=== PATIENT | male | born 1945 | race Caucasian/White ===

== ENCOUNTER 2019-08-13 12:16 | Emergency (ER) | payer MEDICARE, BC ==
--- NOTE | 2019-08-13 13:30 | CT ---
CT LUMBAR SPINE: DATE: 08/13/2019. FINDINGS: Spiral CT of the lumbar spine was performed for evaluation of pain post trauma. Axial slices were ac quired followed by coronal and sagittal reconstructions. The scan covers an area from T12 through th e top of the sacrum. There were no fractures or other acute traumatic changes. The vertebral alignment is normal, perhaps with a millimeter or 2 of anterolisthesis of L5 on S1 due to facet changes. At no level was there a ny strong evidence of trauma. There are cystic and Schmorl's nodes-type changes in the inferior end plate of the L2 vertebral body. There is slight disk space narrowing at this level and mild right foraminal narrowing. There is a mild concentric bulge of the L4-L5 disk without clear neural impingement. There is some mild left fo raminal narrowing. 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 At L5-S1, there are also some subchondral cystic changes in the left facet joint. No focal disk herniation was seen. The SI joints were unremarkable. IMPRESSION: 1. No acute traumatic changes. 2. Degenerative and cystic changes in the inferior end plate of L2 as well as some of the facet join ts of the lumbar spine. 3. Minor foraminal narrowing at levels noted above. I would also note that at L4-L5 the concentric bulge of the disk and slight foraminal hypertrophy yields at least a mild degree of central canal dana nosis. POS: HOME
--- NOTE | 2019-08-13 13:32 | RAD ---
RIGHT WRIST 3 VIEWS: DATE: 08/13/2019. FINDINGS: While no definite acute fracture was seen, there does appear to be an old fracture through the mid po rtion of the scaphoid. The distal pole is slightly deformed and the fracture is probably completely united. It really does not appear recent, however. The proximal pole is not excessively sclerotic t o suggest avascular necrosis. There are cystic changes in the distal radius that are most likely sub chondral cysts due to degenerative change. The patient has developed similar changes in other joints of the spine, lending that being the probable diagnosis, knowing that there are similar changes else where. No acute fractures were identified. IMPRESSION: 1. Scaphoid fracture that appears to be old. Correlate with clinical history and exam. 2. Subchondral cyst of the distal radius. CODE T POS: HOME
== END 2019-08-13 13:19 | disposition home or self-care (01) ==
LOC: BURERS 12:16
DX: M19.031 Primary osteoarthritis, right wrist (principal); M54.2 Cervicalgia; Z87.891 Personal history of nicotine dependence; W18.30XA Fall on same level, unspecified, initial encounter
CPT/HCPCS: 72131